=== PATIENT | male | born 1940 | race Caucasian/White ===

== ENCOUNTER 2020-10-10 11:23 | Emergency (ER) | payer BC, MEDICARE, OTHER ==
--- NOTE | 2020-10-10 12:09 | EDM.PDOC ---
ED HPI GENERAL MEDICAL PROBLEM - General Chief Complaint: Syncope Stated Complaint: MEDICAL Time Seen by Provider: 10/10/20 11:58 Source of Information: Reports: Patient, Family History Limitations: Reports: No Limitations - History of Present Illness INITIAL COMMENTS - FREE TEXT/NARRATIVE: Patient presents by ambulance from home after having an episode of diaphoresis and possibly weakness feeling around 1000 hrs. today. He has ongoing night sweats virtually every evening. Those have not been explained to him. Today he noticed sweating similar to the degree he experiences at night meaning that it would saturate clothing. 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 He is transitioning down in a dose of aspirin and will start Xarelto tomorrow, September. His symptoms of sweating lasted about 15 minutes today. When I asked why he lay down on the floor, he said for safety. He denies any syncope. No changes in sensation or motor strength anywhere. The episode concerned his who called 911 although the patient did not feel that he needed to come to the hospital. She was concerned that perhaps he suffered another brief stroke? He is scheduled to follow-up with his primary care physician next week and they have radiology images and other documentation in an envelope with him today. At this time, he feels like his usual self and has no concerns. Onset: Sudden Duration: Hour(s):, Resolved Prior to Arrival Location: Reports: Generalized - Related Data Allergies Allergy/AdvReac Type Severity Reaction Status Date / Time No Known Allergies Allergy Verified 10/10/20 11:42 Home Meds: Home Meds Nitroglycerin [Nitrostat] 0.3 mg SL ASDIRECTED PRN 10/01/14 [History] Rivaroxaban [Xarelto] 1 tab PO DAILY 10/10/20 [History] atorvaSTATin [Lipitor] 1 tab PO DAILY 10/10/20 [History] Past Medical History Neurological History: Reports: Brain Injury, TIA - Past Surgical History Cardiovascular Surgical History: Reports: Coronary Artery Bypass Social & Family History - Tobacco Use Tobacco Use Status *Q: Never Tobacco User ED ROS GENERAL - Review of Systems Review Of Systems: See Below Constitutional: Reports: Diaphoresis (Approximately 15 minutes as described.). Denies: Fever, Chills, Malaise HEENT: Reports: Vision Change (Loss of right eye lateral peripheral vision consistent with recent left occipital stroke.) Respiratory: Reports: No Symptoms Cardiovascular: Denies: Chest Pain, Lightheadedness, Orthopnea GI/Abdominal: Reports: No Symptoms Musculoskeletal: Reports: No Symptoms - Physical Exam Exam: See Below Text/Narrative:: This is a composed adult male accompanied by his who is in no distress and is an excellent historian. Exam Limited By: No Limitations General Appearance: Alert, No Apparent Distress Throat/Mouth: Normal Inspection Head Exam: Normocephalic Neck: Supple Respiratory/Chest: Lungs Clear Cardiovascular: Irregularly Irregular GI/Abdominal: Soft, Non-Tender Course - Vital Signs Last Recorded V/S: Last Vital Signs Temp 36.6 C 10/10/20 11:52 Pulse 86 10/10/20 13:11 Resp 16 10/10/20 11:52 BP 104/73 10/10/20 13:11 Pulse Ox 97 10/10/20 11:52 - Orders/Labs/Meds Orders: Active Orders 24 hr Category Date Time Status EKG 12 Lead [EK] Routine Ther 10/10/20 12:15 Ordered Labs: Laboratory Tests 10/10/20 10/10/20 Range/Units 12:20 12:20 WBC 6.7 (4.5-11.0) K/uL RBC 4.27 L (4.30-5.90) M/uL Hgb 13.7 (12.0-15.0) g/dL Hct 41.9 (40.0-54.0) % MCV 98 (80-98) fL MCH 32 H (27-31) pg MCHC 33 (32-36) % Plt Count 158 (150-400) K/uL Neut % (Auto) 74 H (36-66) % Lymph % (Auto) 12 L (24-44) % Aurora % (Auto) 10 H (2-6) % Eos % (Auto) 3 (2-4) % Baso % (Auto) 0 (0-1) % Sodium 141 (140-148) mmol/L Potassium 4.2 (3.6-5.2) mmol/L Chloride 105 (100-108) mmol/L Carbon Dioxide 27 (21-32) mmol/L Anion Gap 9.4 (5.0-14.0) mmol/L BUN 20 H (7-18) mg/dL Creatinine 1.2 (0.8-1.3) mg/dL Est Cr Clr Drug Dosing 52.66 mL/min Estimated GFR (MDRD) 58 L (>60) Glucose 136 H (74-106) mg/dL Calcium 8.8 (8.5-10.1) mg/dL Total Bilirubin 1.4 H (0.2-1.0) mg/dL AST 21 (15-37) U/L ALT 27 (12-78) U/L Alkaline Phosphatase 55 (46-116) U/L Troponin I < 0.017 (0.000-0.056) ng/mL Total Protein 6.7 (6.4-8.2) g/dL Albumin 3.4 (3.4-5.0) g/dL Globulin 3.3 (2.3-3.5) g/dL Albumin/Globulin Ratio 1.0 L (1.2-2.2) - Re-Assessments/Exams Free Text/Narrative Re-Assessment/Exam: 10/10/20 12:21 I will check an EKG and several other lab parameters. Radiology reports from the [facility] were reviewed and again there is documented ischemic area in the left occipital lobe of the brain consistent with an acute infarction. His noncontrast head CT performed at the same visit was negative. A CT angiogram of the brain showed incomplete opacification of the left posterior cerebral artery but there was no evidence of dissection, aneurysm, hemorrhage. The CT angiogram of carotid arteries showed no abnormalities. 10/10/20 18:03 I returned later to review test results which are unremarkable. His EKG shows atrial fibrillation but with controlled ventricular response. There are unifocal PVCs that appear regularly every 4 or 5 complexes. At previous visits, his doctor had discussed with him the possibility of needing a pacemaker at some point. I told him that I felt his episodes of sweating may be symptoms of adrenaline surge related to either an overly fast or overly slow heartbeat. There is nothing that looks like sign of heart attack today. He has previously used home Holter monitoring although it sounds like this was sometime ago given the size of the unit he mentions. I discussed that new heart rate monitors are the size of flash drives and are very user-friendly. He may want to talk with Dr. Herrera prior to his appointment this week to find out if he should get and use another home heartbeat monitor. If he notices future episodes of diaphoresis, he should make certain that he is either sitting or lying down in the event that these are associated with syncope. I told patient, and his , that I did not believe the symptoms today represent a new stroke. They are cardiac sounding. Questions answered from patient and his . They should have Dr. Herrera office contact the hospital to get this emergency department note prior to his upcoming appointment. Reasons to return to emergency department reviewed. Departure - Departure Time of Disposition: 13:26 Disposition: Home, Self-Care 01 Condition: Good Clinical Impression: Diaphoresis Atrial fibrillation Qualifiers: Atrial fibrillation type: unspecified chronic Qualified Code(s): I48.20 - Chronic atrial fibrillation, unspecified - Discharge Information Instructions: Atrial Fibrillation, [id number] Referrals: PCP,None [Primary Care Provider] - Forms: ED Department Discharge Additional Instructions: Continue current medications as recently prescribed at the time of your stroke. Your symptoms today sound most like a change in heart rate, either fast or slow. If you notice the sweating episodes and/or any lightheaded feelings, you should sit or lie down immediately. When you see Dr. Herrera next week, ask him about this episode today. Given that you have had discussions about pacemaker placement in the past, it is possible that you might be getting closer to needing one now. If feeling worse in any way return to emergency department. Sepsis Event Note (ED) - Evaluation Sepsis Screening Result: No Definite Risk - Focused Exam Vital Signs: Vital Signs Temp Pulse Resp BP Pulse Ox 10/10/20 13:11 86 104/73 10/10/20 12:41 76 105/64 10/10/20 12:12 81 111/61 10/10/20 11:52 36.6 C 76 16 120/57 L 97 10/10/20 11:32 36.6 C 76 16 120/57 L 97 - My Orders Last 24 Hours: My Active Orders 10/10/20 12:15 EKG 12 Lead [EK] Routine - Assessment/Plan Last 24 Hours: My Active Orders 10/10/20 12:15 EKG 12 Lead [EK] Routine
== END 2020-10-10 14:01 | disposition home or self-care (01) ==
LOC: JP.ED 11:23
DX: I48.20 Chronic atrial fibrillation, unspecified (principal); R61 Generalized hyperhidrosis; Z86.73 Personal history of transient ischemic attack (TIA), and cerebral infarction without residual deficits; Z79.01 Long term (current) use of anticoagulants; Z79.899 Other long term (current) drug therapy
CPT/HCPCS: 36415; 80053; 84484; 85025; 93005; 93010; 99284; 99284-25

== ENCOUNTER 2021-05-06 21:13 | Emergency (ER) | payer MEDICARE ==
[2021-05-06] MEDS ORDERED: Sodium Chloride 0.9% 10 ML Syringe FLUSH PRN (22:27)
[2021-05-06] MEDS ORDERED: Acetaminophen 325 MG Tab PO ONE (23:38)
[2021-05-07] MEDS ORDERED: cefTRIAXone 1 GM Vial IM ONE (02:06)
[2021-05-07] MEDS ORDERED: Doxycycline 100 MG Cap PO ONE (02:07)
--- NOTE | 2021-05-07 02:13 | EDM.PDOC ---
ED HPI GENERAL MEDICAL PROBLEM - General Chief Complaint: Fever Stated Complaint: FEVER, FATIGUE Time Seen by Provider: 05/06/21 22:15 Source of Information: Reports: Patient, Family History Limitations: Reports: No Limitations - History of Present Illness INITIAL COMMENTS - FREE TEXT/NARRATIVE: Maciel is an 80-year-old male presenting to the ED for evaluation of fever, chills, generalized body aches, headache, and decreased appetite. The patient was seen earlier today in the [facility] clinic by Dr. Faye who wanted to admit the patient to the hospital. He elected not to come into the hospital but was instructed if he worsened to present to the ED for admission. During the course of the day the patient has continued to worsen prompting him to present to our ED for evaluation. Family reports that the patient has been sleeping much more than normal. He usually is very active and has not been since the onset of the symptoms 5 days ago. Lower Back Pain Score (Numeric/FACES): 4 - Related Data Allergies Allergy/AdvReac Type Severity Reaction Status Date / Time No Known Allergies Allergy Verified 05/06/21 22:10 Home Meds: Home Meds Aspirin [Children's Aspirin] 81 mg PO BEDTIME 05/06/21 [History] Metoprolol Succinate 50 mg PO DAILY 05/06/21 [History] Nitroglycerin [Nitrostat] 0.4 mg SL ASDIRECTED 05/06/21 [History] Rivaroxaban [Xarelto] 20 mg PO DAILY 05/06/21 [History] lisinopriL [Lisinopril] 2.5 mg PO DAILY 05/06/21 [History] Doxycycline [Vibramycin] 100 mg PO BID #42 cap 05/07/21 [Rx] Past Medical History HEENT History: Reports: Cataract Cardiovascular History: Reports: Afib, CAD, High Cholesterol, Hypertension Musculoskeletal History: Reports: None Neurological History: Reports: Brain Injury, CVA, TIA Endocrine/Metabolic History: Reports: Diabetes, Type II - Infectious Disease History Infectious Disease History: Reports: Chicken Pox - Past Surgical History HEENT Surgical History: Reports: Cataract Surgery Cardiovascular Surgical History: Reports: Coronary Artery Bypass Musculoskeletal Surgical History: Reports: None Social & Family History - Tobacco Use Tobacco Use Status *Q: Never Tobacco User ED ROS GENERAL - Review of Systems Review Of Systems: See Below Constitutional: Reports: Fever, Chills, Malaise, Weakness, Fatigue, Diaphoresis HEENT: Reports: No Symptoms Respiratory: Reports: No Symptoms Cardiovascular: Reports: No Symptoms Endocrine: Reports: Fatigue GI/Abdominal: Reports: Nausea : Reports: No Symptoms Musculoskeletal: Reports: Joint Pain, Muscle Pain Skin: Reports: No Symptoms Neurological: Reports: Dizziness, Headache Psychiatric: Reports: No Symptoms Hematologic/Lymphatic: Reports: No Symptoms Immunologic: Reports: No Symptoms ED EXAM, GENERAL - Physical Exam Exam: See Below Exam Limited By: No Limitations General Appearance: Alert, No Apparent Distress Eye Exam: Bilateral Eye: EOMI, PERRL Throat/Mouth: Normal Inspection, Normal Oropharynx, Normal Voice, No Airway Compromise Head: Atraumatic, Normocephalic Neck: Normal Inspection, Supple. No: Lymphadenopathy (R), Lymphadenopathy (L) Respiratory/Chest: No Respiratory Distress, Lungs Clear, Normal Breath Sounds Cardiovascular: Normal Peripheral Pulses, Regular Rate, Rhythm, No Murmur Peripheral Pulses: 2+: Radial (L), Radial (R), Posterior Tibial (L), Posterior Tibial (R) GI/Abdominal: Normal Bowel Sounds, Soft, Non-Tender Back Exam: Normal Inspection, Full Range of Motion Extremities: Normal Inspection, Normal Range of Motion Neurological: Alert, Oriented, Normal Cognition, No Motor/Sensory Deficits Psychiatric: Normal Affect, Normal Mood Skin Exam: Warm, Dry, Intact, Normal Color, No Rash Lymphatic: No Adenopathy Course - Vital Signs Last Recorded V/S: Last Vital Signs Temp 38.2 C H 05/06/21 22:07 Pulse 89 05/06/21 22:51 Resp 16 05/06/21 22:51 BP 91/54 L 05/06/21 22:51 Pulse Ox 97 05/06/21 22:51 - Orders/Labs/Meds Orders: Active Orders 24 hr Category Date Time Status Chest 2V [CR] Stat Exams 05/06/21 22:27 Taken BABESIA MICROTI ANTIBODY PANEL Urgent Lab 05/06/21 10:51 Received HUMAN GRANULOCYTIC PAUL-HGE Urgent Lab 05/06/21 10:51 Received Sodium Chloride 0.9% [Saline Flush] Med 05/06/21 22:27 Active 10 ml FLUSH ASDIRECTED PRN Saline Lock Insert [OM.PC] Routine Oth 05/06/21 22:27 Ordered Medication Orders Sodium Chloride (Sodium Chloride 0.9% 10 Ml Syringe) 10 ml FLUSH ASDIRECTED PRN PRN Reason: Keep Vein Open Last Admin: 05/06/21 23:29 Dose: 10 ml Documented by: PREILOR Labs: Laboratory Tests 05/06/21 05/06/21 05/06/21 Range/Units 10:51 10:51 10:51 WBC 2.8 L (4.5-11.0) K/uL RBC 4.06 L (4.30-5.90) M/uL Hgb 13.2 (12.0-15.0) g/dL Hct 39.0 L (40.0-54.0) % MCV 96 (80-98) fL MCH 33 H (27-31) pg MCHC 34 (32-36) % Plt Count 103 L (150-400) K/uL Neut % (Auto) 80.9 H (36-66) % Lymph % (Auto) 9.9 L (24-44) % Logan % (Auto) 8.8 H (2-6) % Eos % (Auto) 0.0 L (2-4) % Baso % (Auto) 0.4 (0-1) % Sodium 133 L (140-148) mmol/L Potassium 4.5 (3.6-5.2) mmol/L Chloride 97 L (100-108) mmol/L Carbon Dioxide 26 (21-32) mmol/L Anion Gap 14.5 H (5.0-14.0) mmol/L BUN 29 H (7-18) mg/dL Creatinine 1.5 H (0.8-1.3) mg/dL Est Cr Clr Drug Dosing 39.88 mL/min Estimated GFR (MDRD) 45 L (>60) Glucose 116 H (74-106) mg/dL Calcium 8.2 L (8.5-10.1) mg/dL Total Bilirubin 1.1 H (0.2-1.0) mg/dL AST 27 (15-37) U/L ALT 24 (12-78) U/L Alkaline Phosphatase 56 (46-116) U/L C-Reactive Protein 5.51 H (0.0-0.3) mg/dL Total Protein 7.1 (6.4-8.2) g/dL Albumin 3.4 (3.4-5.0) g/dL Globulin 3.7 H (2.3-3.5) g/dL Albumin/Globulin Ratio 0.9 L (1.2-2.2) Urine Color (YELLOW) Urine Appearance (CLEAR) Urine pH (5.0-8.0) Ur Specific Lyons (1.008-1.030) Urine Protein (NEGATIVE) mg/dL Urine Glucose (UA) (NEGATIVE) mg/dL Urine Ketones (NEGATIVE) mg/dL Urine Occult Blood (NEGATIVE) Urine Nitrite (NEGATIVE) Urine Bilirubin (NEGATIVE) Urine Urobilinogen (0.2-1.0) EU/dL Ur Leukocyte Esterase (NEGATIVE) Urine RBC (0-5) Urine WBC (0-5) Ur Epithelial Cells Amorphous Sediment Urine Bacteria Urine Mucus Urine Other Lyme Disease IgG Ab Negative (Negative) Lyme Disease IgM Ab Negative (Negative) 05/06/21 Range/Units 22:30 WBC (4.5-11.0) K/uL RBC (4.30-5.90) M/uL Hgb (12.0-15.0) g/dL Hct (40.0-54.0) % MCV (80-98) fL MCH (27-31) pg MCHC (32-36) % Plt Count (150-400) K/uL Neut % (Auto) (36-66) % Lymph % (Auto) (24-44) % Logan % (Auto) (2-6) % Eos % (Auto) (2-4) % Baso % (Auto) (0-1) % Sodium (140-148) mmol/L Potassium (3.6-5.2) mmol/L Chloride (100-108) mmol/L Carbon Dioxide (21-32) mmol/L Anion Gap (5.0-14.0) mmol/L BUN (7-18) mg/dL Creatinine (0.8-1.3) mg/dL Est Cr Clr Drug Dosing mL/min Estimated GFR (MDRD) (>60) Glucose (74-106) mg/dL Calcium (8.5-10.1) mg/dL Total Bilirubin (0.2-1.0) mg/dL AST (15-37) U/L ALT (12-78) U/L Alkaline Phosphatase (46-116) U/L C-Reactive Protein (0.0-0.3) mg/dL Total Protein (6.4-8.2) g/dL Albumin (3.4-5.0) g/dL Globulin (2.3-3.5) g/dL Albumin/Globulin Ratio (1.2-2.2) Urine Color Yellow (YELLOW) Urine Appearance Slightly cloudy A (CLEAR) Urine pH 5.5 (5.0-8.0) Ur Specific Lyons 1.025 (1.008-1.030) Urine Protein 100 H (NEGATIVE) mg/dL Urine Glucose (UA) Negative (NEGATIVE) mg/dL Urine Ketones Negative (NEGATIVE) mg/dL Urine Occult Blood Large H (NEGATIVE) Urine Nitrite Negative (NEGATIVE) Urine Bilirubin Negative (NEGATIVE) Urine Urobilinogen 0.2 (0.2-1.0) EU/dL Ur Leukocyte Esterase Negative (NEGATIVE) Urine RBC 0-5 (0-5) Urine WBC 0-5 (0-5) Ur Epithelial Cells Occasional Amorphous Sediment Moderate Urine Bacteria Occasional Urine Mucus Occasional Urine Other See note Lyme Disease IgG Ab (Negative) Lyme Disease IgM Ab (Negative) Meds: Medications Generic Name Dose Route Start Last Admin Trade Name Freq PRN Reason Stop Dose Admin Sodium Chloride 10 ml 05/06/21 22:27 05/06/21 23:29 Sodium Chloride 0.9% 10 Ml Syringe FLUSH 10 ml ASDIRECTED PRN Administration Keep Vein Open Discontinued Medications Generic Name Dose Route Start Last Admin Trade Name Fremanisha PRN Reason Stop Dose Admin Acetaminophen 650 mg 05/06/21 23:38 05/06/21 23:53 Acetaminophen 325 Mg Tab PO 05/06/21 23:39 650 mg NOW ONE Administration Ceftriaxone Sodium 2 gm 05/07/21 02:06 05/07/21 02:21 Ceftriaxone 1 Gm Vial IM 05/07/21 02:07 2 gm ONETIME ONE Administration Doxycycline Hyclate 100 mg 05/07/21 02:07 05/07/21 02:21 Doxycycline 100 Mg Cap PO 05/07/21 02:08 100 mg ONETIME ONE Administration Lidocaine HCl Confirm 05/07/21 02:13 Lidocaine 1% 5 Ml Sdv Administered 05/07/21 02:14 Dose 10 ml .ROUTE .STK-MED ONE - Re-Assessments/Exams Free Text/Narrative Re-Assessment/Exam: 05/07/21 02:39 I reviewed the patient's labs with some troubling findings. The patient has a leukocyte count of 2.8 with a hemoglobin of 13.2 and hematocrit of 39.0. His platelet count is down at 103,000. He normally has a leukocyte count around 6 with a platelet count around 150,000. His comprehensive metabolic panel is significant for a sodium of 133 with a potassium of 4.5, chloride of 97 with a bicarbonate of 26, BUN of 29 with a creatinine 1.5 and a glucose of 116. His GFR is calculated at 45. C-reactive protein is elevated 5.51. Lyme IgM and IgG titers are negative. Urinalysis is also negative. Based on the patient's symptomatology and lab findings, this is quite worrisome for anaplasmosis. We will initiate antibiotics with ceftriaxone 2 g IM followed by doxycycline 100 mg twice daily for 21 days while the tests are pending. Indications return to the ED were discussed and the patient was discharged in satisfactory condition. Departure - Departure Time of Disposition: 02:25 Disposition: Home, Self-Care 01 Clinical Impression: Human anaplasmosis - Discharge Information Prescriptions: Doxycycline [Vibramycin] 100 mg PO BID #42 cap Instructions: Ehrlichiosis and Anaplasmosis, [id number] Referrals: Rodriguez Herrera MD [Primary Care Provider] - Forms: ED Department Discharge Care Plan Goals: I suspect that you have anaplasmosis which is a tickborne disease formally known as ehrlichia. This causes a constellation of symptoms that you are presenting with as well as lab findings that I am seeing in your lab work. You are going to start you on medication for this while the test is pending. You will receive a shot of ceftriaxone in the emergency room and the first dose of doxycycline. I have also printed prescription for doxycycline for you to fill this morning at 1 tablet twice daily for the next 21 days. Sepsis Event Note (ED) - Evaluation Sepsis Screening Result: Possible Sepsis Risk - Focused Exam Vital Signs: Vital Signs Temp Pulse Resp BP Pulse Ox 05/06/21 22:51 89 16 91/54 L 97 05/06/21 22:07 38.2 C H 96 14 99/52 L 98 05/06/21 22:00 38.2 C H 96 14 99/52 L 98 - Problem List & Annotations (1) Human anaplasmosis SNOMED Code(s): 57726497 Code(s): A77.49 - OTHER EHRLICHIOSIS Status: Acute Priority: Medium Current Visit: Yes - Problem List Review Problem List Initiated/Reviewed/Updated: Yes - My Orders Last 24 Hours: My Active Orders 05/06/21 10:51 BABESIA MICROTI ANTIBODY PANEL Urgent HUMAN GRANULOCYTIC PAUL-HGE Urgent 05/06/21 22:27 Chest 2V [CR] Stat Sodium Chloride 0.9% [Saline Flush] 10 ml FLUSH ASDIRECTED PRN Saline Lock Insert [OM.PC] Routine - Assessment/Plan Last 24 Hours: My Active Orders 05/06/21 10:51 BABESIA MICROTI ANTIBODY PANEL Urgent HUMAN GRANULOCYTIC PAUL-HGE Urgent 05/06/21 22:27 Chest 2V [CR] Stat Sodium Chloride 0.9% [Saline Flush] 10 ml FLUSH ASDIRECTED PRN Saline Lock Insert [OM.PC] Routine
--- NOTE | 2021-05-07 09:26 | CR ---
CHEST: 2 view CLINICAL HISTORY:Cough and fever COMPARISON:2010 FINDINGS: Lungs are emphysematous. There is diffuse calcified pleural plaque formation. There are multiple old right rib fractures. Patient has had previous sternotomy.. There is some patchy density in the right lower lung field. This may be some chronic interstitial changes. Considering patient's history, right lower lobe pneumonia is not excluded. 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 Short-term follow-up recommended
[2021-05-11 15:09] LABS: HGE IGG TITER Negative (Neg:<1:64); HGE IGM TITER Negative (Neg:<1:20)
== END 2021-05-07 02:54 | disposition home or self-care (01) ==
LOC: JP.ED 21:13
DX: A77.49 Other ehrlichiosis (principal); I48.91 Unspecified atrial fibrillation; I25.10 Atherosclerotic heart disease of native coronary artery without angina pectoris; I10 Essential (primary) hypertension; E11.9 Type 2 diabetes mellitus without complications; Z79.82 Long term (current) use of aspirin; Z79.01 Long term (current) use of anticoagulants; Z79.899 Other long term (current) drug therapy
CPT/HCPCS: 36415; 71046; 80053; 81001; 85025; 86140; 86618; 86666; 86753; 96372; 99284; A9270; J0696

== ENCOUNTER 2025-03-07 19:14 | Emergency (ER) | payer MEDICARE ==
[2025-03-07] MEDS ORDERED: Sodium Chloride 0.9% 10 ML Syringe FLUSH PRN (20:19)
[2025-03-07 20:32] LABS: BASOPHILS ABSOLUTE AUTO 0.02 K/uL (0.00-0.10); BASOPHILS PERCENT AUTO 0.4 % (0.1-1.3); EOSINOPHILS ABSOLUTE AUTO 0.18 K/uL (0.00-0.40); EOSINOPHILS PERCENT AUTO 3.6 % (0.0-5.4); HEMATOCRIT 30.5 % (38.4-49.7); HEMOGLOBIN 10.4 g/dL (12.9-16.9); IMMATURE GRAN ABSOLUTE AUTO 0.01 K/uL (0.00-0.23); IMMATURE GRAN PERCENT AUTO 0.2 % (0.0-0.7); LYMPHOCYTES ABSOLUTE AUTO 0.94 K/uL (0.8-3.3); LYMPHOCYTES PERCENT AUTO 18.8 % (11.4-47.7); MEAN CORPUSCULAR HEMOGLOBIN 33.8 pg (31.6-35.5); MEAN CORPUSCULAR HGB CONC 34.1 g/dL (31.6-35.5); MONOCYTES ABSOLUTE AUTO 0.75 K/uL (0.20-0.90); PLATELET COUNT,PLT 127 K/uL (130-375); RED BLOOD CELL COUNT 3.08 M/uL (4.14-5.76)
[2025-03-07 20:50] LABS: APPEARANCE,URINE CLEAR (CLEAR); BILIRUBIN,URINE NEGATIVE (NEGATIVE); COLOR,URINE YELLOW (YELLOW); GLUCOSE,URINE NEGATIVE (NEGATIVE); KETONES,URINE NEGATIVE (NEGATIVE); LEUKOCYTE ESTERASE,URINE NEGATIVE (NEGATIVE); NITRITE,URINE NEGATIVE (NEGATIVE); OCCULT BLOOD,URINE NEGATIVE (NEGATIVE); PH,URINE 6.5 (5.0-8.0); PROTEIN,URINE NEGATIVE (NEGATIVE); UROBILINOGEN,URINE 0.2 EU/dL (0.2-1.0)
[2025-03-07 20:53] LABS: A/G RATIO 1.2 (1.2-2.2); ALANINE AMINOTRANSFERASE,ALT 23 U/L (12-78); ALBUMIN 3.5 g/dL (3.4-5.0); ALKALINE PHOSPHATASE 68 U/L (46-116); ANION GAP 8.6 mmol/L (5.0-14.0); ASPARTATE AMNIOTRANSFERASE,AST 19 U/L (15-37); BILIRUBIN TOTAL 0.9 mg/dL (0.2-1.0); BLOOD UREA NITROGEN,BUN 37 mg/dL (7-18); CALCIUM 9.1 mg/dL (8.5-10.1); CARBON DIOXIDE,CO2 29 mmol/L (21-32); CHLORIDE,CL 105 mmol/L (100-108); CREATININE 2.8 mg/dL (0.8-1.3); EST CRCL DRUG DOSING (CG) 19.92 mL/min; ESTIMATED GFR 21 mL/min (>60); GLUCOSE RANDOM 90 mg/dL (74-106); POTASSIUM,K 3.9 mmol/L (3.6-5.2); PROTEIN TOTAL,TP 6.5 g/dL (6.4-8.2); SODIUM,NA 143 mmol/L (140-148)
[2025-03-07 20:56] LABS: AMORPHOUS SEDIMENT,URINE NOT SEEN; BACTERIA,URINE FEW; EPITHELIAL CELLS,URINE NOT SEEN; MUCUS,URINE NOT SEEN; RBC,URINE 0-5 (0-5); WBC,URINE 0-5 (0-5)
== END 2025-03-07 22:40 | disposition home or self-care (01) ==
LOC: JP.ED 19:14
DX: K59.04 Chronic idiopathic constipation (principal); E11.9 Type 2 diabetes mellitus without complications; Z79.899 Other long term (current) drug therapy; Z87.891 Personal history of nicotine dependence
CPT/HCPCS: 36415; 74176; 80053; 81001; 83605; 85025; 99283; 99284